=== PATIENT | male | born 1950 | race Caucasian/White ===

== ENCOUNTER 2016-10-28 14:37 | Inpatient (IN) | payer MEDICARE ==
[~2016-10-28] VITALS: Ht 175.3 cm; Wt 86.8 kg
[2016-10-28 15:40] LABS: HEMOGLOBIN 13.7 gm/dl (14.0-17.5); RED BLOOD COUNT 4.22 M/UL (4.20-5.50); WHITE BLOOD COUNT 4.9 K/UL (4.5-11.0)
[2016-10-29] MEDS ORDERED: ZYLOPRIM 100 M100 MG PO (00:35)
[2016-10-29] MEDS ORDERED: ZOCOR80 MG PO (00:35)
[2016-10-29] MEDS ORDERED: COREG 25MG TAB25 MG PO (00:36)
[2016-10-29 01:30] LABS: HEMOGLOBIN 13.6 gm/dl (14.0-17.5); RED BLOOD COUNT 4.18 M/UL (4.20-5.50); WHITE BLOOD COUNT 5.5 K/UL (4.5-11.0)
[2016-10-29 01:54] LABS: BUN/CREATININE RATIO 18 (0-10)
== END 2016-10-29 11:01 | disposition short-term general hospital (02) | DRG 303 ==
LOC: ER1 14:37 → ZEROF 17:30 → MED SURG 4 17:30
PROVIDERS: Emergency Medicine; ADMIT Family Medicine
DX: I25.110 Atherosclerotic heart disease of native coronary artery with unstable angina pectoris (principal); I12.9 Hypertensive chronic kidney disease with stage 1 through stage 4 chronic kidney disease, or unspecified chronic kidney disease; N18.3 Chronic kidney disease, stage 3 (moderate); E78.2 Mixed hyperlipidemia; M10.9 Gout, unspecified; Z95.1 Presence of aortocoronary bypass graft; Z95.5 Presence of coronary angioplasty implant and graft; Z91.11 Patient's noncompliance with dietary regimen; Z79.899 Other long term (current) drug therapy; Z82.49 Family history of ischemic heart disease and other diseases of the circulatory system
CPT/HCPCS: 36415; 71010; 80048; 80053; 80061; 82550; 82553; 84443; 84484; 85025; 85027; 85610; 85730; 93005; 96374; 96375; 99285; G0378; J1644; J2270; J2405; J7030

== ENCOUNTER 2020-09-01 21:27 | Emergency (ER) | payer OTHER ==
[~2020-09-01 21:27] MED LIST: COREG 25MG TAB25 MG PO; ZOCOR80 MG PO; ZYLOPRIM 100 M100 MG PO
[2020-09-01 22:31] LABS: HEMOGLOBIN 14.5 gm/dl (14.0-17.5); RED BLOOD COUNT 4.48 M/UL (4.20-5.50); WHITE BLOOD COUNT 5.9 K/UL (4.5-11.0)
[2020-09-01 22:44] LABS: BUN/CREATININE RATIO 19 (0-10)
[2020-09-02] MEDS ORDERED: VENTOLIN HFA 66.7 GM INH (00:29)
== END 2020-09-02 02:40 | disposition home or self-care (01) ==
LOC: ER1 21:27
PROVIDERS: Physician Assistant
DX: U07.1 COVID-19 (principal); I25.2 Old myocardial infarction; I25.10 Atherosclerotic heart disease of native coronary artery without angina pectoris; E78.5 Hyperlipidemia, unspecified; I12.9 Hypertensive chronic kidney disease with stage 1 through stage 4 chronic kidney disease, or unspecified chronic kidney disease; N18.9 Chronic kidney disease, unspecified; Z95.1 Presence of aortocoronary bypass graft
CPT/HCPCS: 0240U; 71045; 80053; 82550; 82553; 83874; 83880; 84484; 85025; 85610; 85730; 93005; 96374; 99285; J1100; J2405; M0239